=== PATIENT | female | born 1990 | race Caucasian/White ===

== ENCOUNTER 2023-08-18 20:07 | Emergency (ER) | payer BC, SELFPAY ==
[2023-08-18 20:15] VITALS: BP 126/81; PULSE 95; RESP 16; TEMP 36.5; O2SAT 99; BMI 32.9
[2023-08-18] MEDS: ACETAMINOPHEN 325 MG TABLET 650 MG PO (20:40)
--- NOTE | 2023-08-18 20:50 | ED.WOUNDLAC ---
HPI - Wound/Laceration General Chief Complaint: Wound/Laceration Stated Complaint: lip lac Time Seen by Provider: 08/18/23 20:35 Source: patient Mode of arrival: Ambulatory History of Present Illness HPI narrative: Patient is a 33-year-old female who is here for evaluation of a cut to her left upper lip. She states that just prior to arrival she tripped and fell and she thinks she bit her lip. She reports no dental pain. No jaw pain. No other injuries from the event. No neck pain. No loose teeth or missing teeth. Review of Systems Constitutional Constitutional: Reports system reviewed and no additional complaints, except as documented ENT Ears, Nose, Mouth, and Throat: Reports system reviewed and no additional complaints, except as documented Integumentary/Breasts Skin/Breast: Reports system reviewed and no additional complaints, except as documented Patient History tobacco type: e-cigarettes alcohol intake frequency: holidays/special occasions only Substance Use Type: does not use Exam Initial Vital Signs Initial Vital Signs: Vital Signs Temperature 97.7 F 08/18/23 20:15 Pulse Rate 95 H 08/18/23 20:15 Respiratory Rate 16 08/18/23 20:15 Blood Pressure 126/81 08/18/23 20:15 Pulse Oximetry 99 08/18/23 20:15 Oxygen Delivery Method Room Air 08/18/23 20:15 HENND Face and sinus: face symmetric Mouth: tongue normal and lip abnormal (0.25 cm laceration left upper lip that does not cross the vermilion border.) Teeth and gingiva: dentition normal Skin Other: Cut to left upper lip Neuro General: patient alert and patient awake Course Orders Ordered: Discontinued Medications Acetaminophen (Acetaminophen 325 Mg Tablet) 650 mg PO NOW ONE Stop: 08/18/23 20:36 Last Admin: 08/18/23 20:40 Dose: 650 mg Documented By: JOSHUA Vital Signs Vital signs: Vital Signs - 8 hr 08/18/23 20:15 Temperature 97.7 F Pulse Rate 95 H Respiratory Rate 16 Blood Pressure 126/81 Pulse Oximetry 99 Oxygen Delivery Method Room Air MDM - Wound/Laceration MDM Narrative Medical decision making narrative: She does have a small cut to the left upper lip that does not cross the vermilion border. No active bleeding. No dental pain. No loose teeth or missing teeth. No maxillary instability. No jaw pain. No indication for radiologic studies. We will hold on placing any sutures for now given the location of the wound. Discuss this with the patient. We discussed keeping it clean. Discussed using ice. Discussed return precautions and follow-up instructions. She expressed understanding and agreement. Discharge Plan Departure Patient Disposition: Home Clinical Impression: Laceration of lip Activity Restrictions/Additional Instructions: Try to keep the area clean specifically after eating. Be careful when your brushing your teeth. Icing the area will be beneficial as well. Return to the emergency department for new symptoms. Stand Alone Forms: Patient Portal/API
--- NOTE | 2023-08-18 20:56 | PC.NURSE ---
Ice provided to patient for lip.
== END 2023-08-18 20:58 | disposition home or self-care (01) ==
PROVIDERS: Emergency Provider Emergency Medicine
DX: S01.511A Laceration without foreign body of lip, initial encounter (principal); W01.0XXA Fall on same level from slipping, tripping and stumbling without subsequent striking against object, initial encounter
CPT/HCPCS: 99283